=== PATIENT | male | born 1990 | race Caucasian/White ===

== ENCOUNTER 2017-09-20 20:35 | Emergency (ER) | payer BC ==
[~2017-09-20] VITALS: Ht 185.4 cm; Wt 125.0 kg
[2017-09-20 21:13] VITALS: BP 131/92; PULSE 103; RESP 18; TEMP 99.5; O2SAT 99
[2017-09-21 00:50] VITALS: BP 140/87; PULSE 90; RESP 18; O2SAT 100
[2017-09-21] MEDS ORDERED: LOMO2.5T PO (00:53)
[2017-09-21] MEDS ORDERED: SODIUM CHLOR 0.9% 1000 ML INJ 1,000 ML IV SCH (00:54)
[2017-09-21] MEDS ORDERED: SODIUM CHLORIDE 0.9% FLUSH 10 ML FLUSH IV FLUSH PRN (01:00)
[2017-09-21] MEDS ORDERED: ONDANSETRON ODT 4 MG TAB PO ONE (01:00)
[2017-09-21 01:24] LABS: AUTOMATED NEUTROPHIL # 6.1 TH/MM3 (1.8-7.7); BASOPHIL % 0.4 % (0.0-2.0); EOSINOPHIL % 0.3 % (0.0-4.0); HEMATOCRIT 47.5 % (39.0-51.0); HEMOGLOBIN 16.6 GM/DL (13.0-17.0); LYMPH % 10.8 % (9.0-44.0); LYMPHOCYTE # 0.8 TH/MM3 (1.0-4.8); MEAN CELL VOLUME 82.4 FL (80.0-100.0); MEAN CORPUSCULAR HEMOGLOBIN 28.8 PG (27.0-34.0); MEAN CORPUSCULAR HGB CONC 34.9 % (32.0-36.0); MEAN PLATELET VOLUME 6.8 FL (7.0-11.0); MONO % 10.4 % (0.0-8.0); MONOCYTE # 0.8 TH/MM3 (0-0.9); NEUT % 78.1 % (16.0-70.0); PLATELET COUNT 238 TH/MM3 (150-450); RED BLOOD COUNT 5.77 MIL/MM3 (4.50-5.90); RED CELL DISTRIBUTION WIDTH 13.2 % (11.6-17.2); WHITE BLOOD COUNT 7.9 TH/MM3 (4.0-11.0)
[2017-09-21 01:33] LABS: INTERNATIONAL NORMALIZED RATIO 1.1 RATIO; PROTHROMBIN TIME - PATIENT 10.9 SEC (9.8-11.6)
[2017-09-21 01:44] LABS: ALBUMIN 4.5 GM/DL (3.4-5.0); ALT (GPT) 97 U/L (12-78); AST (GOT) 35 U/L (15-37); BICARBONATE 23.5 MEQ/L (21.0-32.0); BLOOD UREA NITROGEN 15 MG/DL (7-18); CALCIUM 8.7 MG/DL (8.5-10.1); CHLORIDE 104 MEQ/L (98-107); CREATININE 1.34 MG/DL (0.60-1.30); GLOMERULAR FILTRATION RATE 63 ML/MIN (>89); GLUCOSE,RANDOM 102 MG/DL (74-106); SODIUM (NA) 136 MEQ/L (136-145)
[2017-09-21 01:47] LABS: ALKALINE PHOSPHATASE 58 U/L (45-117); TOTAL BILIRUBIN ADULT 1.4 MG/DL (0.2-1.0); TOTAL PROTEIN 8.1 GM/DL (6.4-8.2)
[2017-09-21] MEDS ORDERED: KETOROLAC TROMETHAMINE 30 MG/ML (IVP) VIAL IVP ONE (02:15)
[2017-09-21] MEDS ORDERED: PROCHLORPERAZINE INJ 10 MG/2 ML VIAL IVP ONE (02:15)
--- NOTE | 2017-09-21 02:34 | PD ---
HPI Chief Complaint: Abdominal Pain Time Seen by Provider: 00:51 Travel History International Travel<30 days: Yes ([facility]) Contact w/Intl Traveler<30days: Yes Name of Country Traveled to: [facility] Traveled to known affect area: No History of Present Illness HPI Patient is a 27-year-old male who presents the emergency room complaints of diarrhea. Patient reports that he has had multiple episodes of diarrhea for the past 2 days, patient reports that he recently returned home from a trip from [facility] -reports that he was drinking filtered water. Patient reports that he is tried taking Lomotil to help with his diarrhea, reports that it has not helped him. Patient denies any abdominal pain, has not taken any recent antibiotics. Patient reports that he feels dehydrated as he cannot keep up with his fluid intake. Patient reports that whenever he is dehydrated, he gets migraine headaches. Patient at this time also complains of his typical migraine headache, reports that this is not the worst headache of his life, reports that he has a pounding sensation to his head. Patient with no vision changes, no photophobia, no fever or chills. PFSH Past Medical History Narrative Medical Significant for migraine headache Kidney Stones: Yes Tetanus Vaccination: < 5 Years Influenza Vaccination: No Past Surgical History Tympanostomy Tube: Yes Other Surgery: Yes (sinus sx, litotrpsy) Social History Alcohol Use: No Tobacco Use: No Substance Use: No Allergies-Medications (Allergen,Severity, Reaction): Coded Allergies: Penicillins (Verified Allergy, Severe, 09/20/17) hands and feet swell Reported Meds & Prescriptions Reported Meds & Active Scripts Active Reported Lomotil (Diphenoxylate-Atropine) 2.5-0.025 Mg Tab 1 Tab PO Q6H PRN Review of Systems General / Constitutional: No: Fever Eyes: No: Visual changes HENT: Positive: Headaches Cardiovascular: No: Chest Pain or Discomfort Respiratory: No: Shortness of Breath Gastrointestinal: Positive: Nausea, Diarrhea, No: Vomiting, Abdominal Pain Genitourinary: No: Dysuria Musculoskeletal: No: Pain Skin: No Rash Neurologic: No: Weakness Psychiatric: No: Depression Endocrine: No: Polydipsia Hematologic/Lymphatic: No: Easy Bruising Physical Exam Narrative GENERAL: NAD SKIN: Focused skin assessment warm/dry. HEAD: Atraumatic. Normocephalic. EYES: Pupils equal and round. No scleral icterus. No injection or drainage. ENT: No nasal bleeding or discharge. Mucous membranes pink and moist. NECK: Trachea midline. No JVD. CARDIOVASCULAR: Regular rate and rhythm. No murmur appreciated. RESPIRATORY: No accessory muscle use. Clear to auscultation. Breath sounds equal bilaterally. GASTROINTESTINAL: Abdomen soft, non-tender, nondistended. Hepatic and splenic margins not palpable. MUSCULOSKELETAL: No obvious deformities. No clubbing. No cyanosis. No edema. NEUROLOGICAL: Awake and alert. No obvious cranial nerve deficits. Motor grossly within normal limits. Normal speech. CN 2-12 grossly intact with no neurological deficits PSYCHIATRIC: Appropriate mood and affect; insight and judgment normal. Data Data Last Documented VS Vital Signs Date Time Temp Pulse Resp B/P (MAP) Pulse Ox O2 Delivery O2 Flow Rate FiO2 09/21/17 03:37 89 16 127/73 (91) 96 Room Air 09/20/17 21:13 99.5 Orders Orders Complete Blood Count With Diff (09/21/17 00:54) Comprehensive Metabolic Panel (09/21/17 00:54) Lipase (09/21/17 00:54) Prothrombin Time / Inr (Pt) (09/21/17 00:54) Act Partial Throm Time (Ptt) (09/21/17 00:54) Urinalysis - C+S If Indicated (09/21/17 00:54) Iv Access Insert/Monitor (09/21/17 00:54) Ecg Monitoring (09/21/17 00:54) Oximetry (09/21/17 00:54) Sodium Chlor 0.9% 1000 Ml Inj (Ns 1000 M (09/21/17 00:54) Sodium Chloride 0.9% Flush (Ns Flush) (09/21/17 01:00) Cryptosporidium (Stool) (09/21/17 00:54) Cyclospora (Stool) (09/21/17 00:54) Enteric Path (Stool) (09/21/17 00:54) Giardia Antigen (Stool) (09/21/17 00:54) Stool Afb Culture And Stain (09/21/17 00:54) Stool Ova And Parasite Screen (09/21/17 00:54) Stool Wbc (Leukocytes) (09/21/17 00:54) Ondansetron Odt (Zofran Odt) (09/21/17 01:00) Ketorolac Inj (Toradol Inj) (09/21/17 02:15) Prochlorperazine Inj (Compazine Inj) (09/21/17 02:15) Labs Laboratory Tests Test 09/21/17 01:00 White Blood Count 7.9 TH/MM3 Red Blood Count 5.77 MIL/MM3 Hemoglobin 16.6 GM/DL Hematocrit 47.5 % Mean Corpuscular Volume 82.4 FL Mean Corpuscular Hemoglobin 28.8 PG Mean Corpuscular Hemoglobin Concent 34.9 % Red Cell Distribution Width 13.2 % Platelet Count 238 TH/MM3 Mean Platelet Volume 6.8 FL Neutrophils (%) (Auto) 78.1 % Lymphocytes (%) (Auto) 10.8 % Monocytes (%) (Auto) 10.4 % Eosinophils (%) (Auto) 0.3 % Basophils (%) (Auto) 0.4 % Neutrophils # (Auto) 6.1 TH/MM3 Lymphocytes # (Auto) 0.8 TH/MM3 Monocytes # (Auto) 0.8 TH/MM3 Eosinophils # (Auto) 0.0 TH/MM3 Basophils # (Auto) 0.0 TH/MM3 CBC Comment DIFF FINAL Differential Comment Prothrombin Time 10.9 SEC Prothromb Time International Ratio 1.1 RATIO Activated Partial Thromboplast Time 28.9 SEC Blood Urea Nitrogen 15 MG/DL Creatinine 1.34 MG/DL Random Glucose 102 MG/DL Total Protein 8.1 GM/DL Albumin 4.5 GM/DL Calcium Level 8.7 MG/DL Alkaline Phosphatase 58 U/L Aspartate Amino Transf (AST/SGOT) 35 U/L Alanine Aminotransferase (ALT/SGPT) 97 U/L Total Bilirubin 1.4 MG/DL Sodium Level 136 MEQ/L Potassium Level 3.8 MEQ/L Chloride Level 104 MEQ/L Carbon Dioxide Level 23.5 MEQ/L Anion Gap 9 MEQ/L Estimat Glomerular Filtration Rate 63 ML/MIN Lipase 91 U/L MDM Medical Decision Making Medical Screen Exam Complete: Yes Emergency Medical Condition: Yes Medical Record Reviewed: Yes Interpretation(s) Vital Signs Date Time Temp Pulse Resp B/P (MAP) Pulse Ox O2 Delivery O2 Flow Rate FiO2 09/21/17 00:50 90 18 140/87 (104) 100 Room Air 09/20/17 21:13 99.5 103 18 131/92 (493) 99 Differential Diagnosis Travelers diarrhea, electrolyte abnormality, headache, migraine headache Narrative Course During the course of the patients emergency department visit, the patients history, examination, and differential diagnosis were reviewed with the patient. The patient was placed on a monitor worker with oximetry and frequent blood pressure monitoring. The patient had an IV access obtained and blood work sent for analysis. The patient was initially provided IV fluids as well as p.o. Zofran, patient was also given medications for his migraine headache Stool cultures were sent.. The patients laboratory studies were reviewed and remarkable for Laboratory Tests Test 09/21/17 01:00 White Blood Count 7.9 TH/MM3 (4.0-11.0) Red Blood Count 5.77 MIL/MM3 (4.50-5.90) Hemoglobin 16.6 GM/DL (13.0-17.0) Hematocrit 47.5 % (39.0-51.0) Mean Corpuscular Volume 82.4 FL (80.0-100.0) Mean Corpuscular Hemoglobin 28.8 PG (27.0-34.0) Mean Corpuscular Hemoglobin Concent 34.9 % (32.0-36.0) Red Cell Distribution Width 13.2 % (11.6-17.2) Platelet Count 238 TH/MM3 (150-450) Mean Platelet Volume 6.8 FL (7.0-11.0) Neutrophils (%) (Auto) 78.1 % (16.0-70.0) Lymphocytes (%) (Auto) 10.8 % (9.0-44.0) Monocytes (%) (Auto) 10.4 % (0.0-8.0) Eosinophils (%) (Auto) 0.3 % (0.0-4.0) Basophils (%) (Auto) 0.4 % (0.0-2.0) Neutrophils # (Auto) 6.1 TH/MM3 (1.8-7.7) Lymphocytes # (Auto) 0.8 TH/MM3 (1.0-4.8) Monocytes # (Auto) 0.8 TH/MM3 (0-0.9) Eosinophils # (Auto) 0.0 TH/MM3 (0-0.4) Basophils # (Auto) 0.0 TH/MM3 (0-0.2) CBC Comment DIFF FINAL Differential Comment Prothrombin Time 10.9 SEC (9.8-11.6) Prothromb Time International Ratio 1.1 RATIO Activated Partial Thromboplast Time 28.9 SEC (24.3-30.1) Blood Urea Nitrogen 15 MG/DL (7-18) Creatinine 1.34 MG/DL (0.60-1.30) Random Glucose 102 MG/DL (74-106) Total Protein 8.1 GM/DL (6.4-8.2) Albumin 4.5 GM/DL (3.4-5.0) Calcium Level 8.7 MG/DL (8.5-10.1) Alkaline Phosphatase 58 U/L (45-117) Aspartate Amino Transf (AST/SGOT) 35 U/L (15-37) Alanine Aminotransferase (ALT/SGPT) 97 U/L (12-78) Total Bilirubin 1.4 MG/DL (0.2-1.0) Sodium Level 136 MEQ/L (136-145) Potassium Level 3.8 MEQ/L (3.5-5.1) Chloride Level 104 MEQ/L (98-107) Carbon Dioxide Level 23.5 MEQ/L (21.0-32.0) Anion Gap 9 MEQ/L (5-15) Estimat Glomerular Filtration Rate 63 ML/MIN (>89) Lipase 91 U/L (73-393) Patient re-evaluated, patient comfortable, abdomen is soft, nd, nt, no peritoneal signs. Patient with most likely traveler's diarrhea. Stool cultures pending. Will treat for traveler's diarrhea. he will follow up with all cultures from today Diagnosis Primary Impression: Diarrhea Qualified Codes: R19.7 - Diarrhea, unspecified Additional Impression: Dehydration Patient Instructions: General Instructions Additional Instructions: Please provide patient with a copy of their lab work and studies at discharge* * Please follow up with your primary care doctor in 2-3 days Return to the ER if symptoms worsen or progress Return to the ER as needed Please follow-up with all cultures from today Med/Other Pt SpecificInfo: Prescription(s) given Scripts Ciprofloxacin (Cipro) 500 Mg Tab 500 MG PO BID for Infection for 3 Days, #6 TAB 0 Refills Prov: Catrachita Choi DO 09/21/17 Disposition: 01 DISCHARGE HOME Condition: Stable Catrachita Choi DO Sep 21, 2017 02:34
[2017-09-21 03:37] VITALS: BP 127/73; PULSE 89; RESP 16; O2SAT 96
[2017-09-21] MEDS ORDERED: CIPR-9 PO (05:31)
== END 2017-09-21 06:05 | disposition home or self-care (01) ==
LOC: NEPC 20:35
DX: R19.7 Diarrhea, unspecified (principal); E86.0 Dehydration
CPT/HCPCS: 80053; 83690; 85025; 85610; 85730; 87015; 87205; 87207; 87328; 87329; 87506; 96361; 96374; 99284; J1885; J7030